=== PATIENT | female | born 1985 | race Caucasian/White ===

== ENCOUNTER 2016-07-12 11:40 | Observation (INO) | payer OTHER ==
[~2016-07-12] VITALS: Ht 175.3 cm; Wt 80.3 kg
[2016-07-12 12:30] LABS: ADD MIUA? NO; BILIRUBIN NEGATIVE; BLOOD NEGATIVE; COLOR YELLOW ((YELLOW)); GLUCOSE (STRIP) NEGATIVE; KETONES NEGATIVE; LEUKOCYTES NEGATIVE; NITRITE NEGATIVE; PROTEIN (STRIP) NEGATIVE; SPECIFIC GRAVITY 1.012 (1.000-1.030); UCUL ADDED? NO; UROBILINOGEN 0.2 MG/DL (0.2-1.0)
[2016-07-12 13:13] LABS: HEMATOCRIT 38.9 % (36.0-46.0); MCH 30.5 PG (29.0-34.0); MCHC 34.4 G/DL (30.0-36.0); MCV 88.4 FL (83-99); MEAN PLAT.VOLUME 9.2 uM^3 (9.5-12.4); PLATELET COUNT 252 K/uL (156-360); RBC DIS.WIDTH-CV 12.1 % (11.8-14.6); RBC DIS.WIDTH-SD 38.1 % (39-53); WHITE BLOOD COUNT 6.6 K/uL (4.1-10.2)
[2016-07-12 13:31] LABS: CHLORIDE 103 mEq/L (99-109); POTASSIUM 3.7 mEq/L (3.7-5.4); SODIUM 137 mEq/L (136-147)
[2016-07-12 13:33] LABS: GLUCOSE 84 mg/dL (70-99)
[2016-07-12 13:34] LABS: ANION GAP 10 MEQ/L (2-14)
[2016-07-12 13:35] LABS: TOTAL BILIRUBIN 0.5 mg/dL (0.0-1.0); TROP-I INTERPRETATION NEGATIVE; TROPONIN-I < 0.01 ng/mL (0.0-0.30)
[2016-07-12 13:36] LABS: ALKALINE PHOSPHATASE 67 IU/L (3-129)
[2016-07-12 13:37] LABS: GFR ESTIMATE (CALCULATED) > 59 mL/min/
[2016-07-12 13:38] LABS: DIRECT BILIRUBIN 0.2 mg/dL (0.0-0.3); UREA NITROGEN (BUN) 8 mg/dL (9-23)
[2016-07-12 13:40] LABS: LIPASE 34 U/L (1.0-51.0)
[2016-07-12 13:41] LABS: INTERNAL CONTROL VALID? YES; MONOSPOT (MONONUCLEOSIS SEROL) NEGATIVE
[2016-07-12 13:48] LABS: QUANTITATIVE HCG < 4.0 MIU/ML
[2016-07-12 17:01] LABS: ERTH.SED.RATE 22 MM/HR (0-20)
[2016-07-12 19:27] VITALS: BP 102/71
[2016-07-12 21:15] LABS: TROP-I INTERPRETATION NEGATIVE; TROPONIN-I < 0.01 ng/mL (0.0-0.30)
[2016-07-12 23:55] VITALS: BP 92/55
[2016-07-13 03:55] VITALS: BP 90/51
[2016-07-13 07:33] VITALS: BP 100/58
[2016-07-13 11:17] LABS: HEMATOCRIT 38.1 % (36.0-46.0); MCH 30.6 PG (29.0-34.0); MCHC 34.4 G/DL (30.0-36.0); MEAN PLAT.VOLUME 9.2 uM^3 (9.5-12.4); PLATELET COUNT 233 K/uL (156-360); RBC DIS.WIDTH-CV 12.4 % (11.8-14.6); RBC DIS.WIDTH-SD 39.5 % (39-53); RED BLOOD COUNT 4.28 M/uL (3.80-5.20); WHITE BLOOD COUNT 7.7 K/uL (4.1-10.2)
[2016-07-13 11:32] LABS: ANION GAP 8 MEQ/L (2-14); CHLORIDE 103 MEQ/L (99-109); POTASSIUM 3.6 MEQ/L (3.7-5.4); SAMPLE HEMOLYSIS CHECK 0; SAMPLE ICTERIC CHECK 0; SAMPLE LIPEMIA CHECK 0; SODIUM 136 MEQ/L (136-147)
[2016-07-13 11:38] LABS: GFR ESTIMATE (CALCULATED) > 59 mL/min/; GLUCOSE 125 mg/dL (70-99); UREA NITROGEN (BUN) 11 mg/dL (9-23)
[2016-07-13 12:14] VITALS: BP 118/70
[2016-07-13 16:00] VITALS: BP 90/56
[2016-07-13 20:00] VITALS: BP 117/62
[2016-07-14 00:44] VITALS: BP 95/55
[2016-07-14 04:31] VITALS: BP 93/57
[2016-07-14 08:18] VITALS: BP 90/54
[2016-07-14] MEDS ORDERED: VALACYCLOVIR500 MG PO (10:14)
[2016-07-14] MEDS ORDERED: ZITHROMAX500 MG PO (10:14)
== END 2016-07-14 13:46 | disposition home or self-care (01) ==
LOC: RME 11:40 → EME 11:40 → EDOF 16:13 → 5WEST 16:13
PROVIDERS: Internal Medicine; Nurse Practitioner Family
DX: R20.2 Paresthesia of skin (principal); H53.131 Sudden visual loss, right eye; R00.0 Tachycardia, unspecified; R59.1 Generalized enlarged lymph nodes; R07.9 Chest pain, unspecified; Z91.040 Latex allergy status; Z82.3 Family history of stroke; Z82.49 Family history of ischemic heart disease and other diseases of the circulatory system
CPT/HCPCS: 70450; 70544; 70549; 70551; 71020; 71275; 80048; 80076; 81003; 83690; 84443; 84484; 84702; 85027; 85651; 86308; 86611 90; 86778 90; 87040; 93005; 93306; 99281; 99285; G0378; J0456; J1200; J1650; J1885; J2060; J2765; J7030; J7512

== ENCOUNTER → 2016-09-01 | Outpatient (CLI) | payer OTHER ==
[~2016-09-01] VITALS: Ht 175.3 cm; Wt 77.2 kg
[~2016-09-01] MED LIST: ENTOCORT EC3 MG PO; LIALDA1.2 GM PO; VALACYCLOVIR500 MG PO; ZITHROMAX500 MG PO
== END | disposition home or self-care (01) ==
LOC: AMB 07:04
DX: R93.3 Abnormal findings on diagnostic imaging of other parts of digestive tract (principal); R10.9 Unspecified abdominal pain; D12.2 Benign neoplasm of ascending colon; K58.0 Irritable bowel syndrome with diarrhea
CPT/HCPCS: 88305; J2250; J3010

== ENCOUNTER 2018-01-03 14:15 | Emergency (ER) | payer OTHER ==
[~2018-01-03] VITALS: Ht 175.3 cm; Wt 69.9 kg
[2018-01-03 15:55] LABS: HEMATOCRIT 47.6 % (36.0-46.0); HEMOGLOBIN 16.4 G/DL (11.9-15.5); MCH 31.7 PG (29.0-34.0); MCHC 34.5 G/DL (30.0-36.0); MCV 92.1 FL (83-99); PLATELET COUNT 216 K/uL (156-360); RBC DIS.WIDTH-CV 12.2 % (11.8-14.6); RBC DIS.WIDTH-SD 41.3 % (39-53); RED BLOOD COUNT 5.17 M/uL (3.80-5.20); WHITE BLOOD COUNT 9.7 K/uL (4.1-10.2)
[2018-01-03 15:57] LABS: ALBUMIN 4.4 g/dL (3.2-4.8); CHLORIDE 105 mEq/L (99-109); POTASSIUM 3.6 mEq/L (3.7-5.4); SODIUM 139 mEq/L (136-147)
[2018-01-03 15:59] LABS: GLUCOSE 78 mg/dL (70-99); TOTAL PROTEIN 7.6 g/dL (6.4-8.3)
[2018-01-03 16:01] LABS: TOTAL BILIRUBIN 0.7 mg/dL (0.0-1.0)
[2018-01-03 16:03] LABS: ALKALINE PHOSPHATASE 67 IU/L (3-129); CREATININE 0.8 mg/dL (0.6-1.3); GFR ESTIMATE (CALCULATED) > 59 mL/min/
[2018-01-03 16:04] LABS: UREA NITROGEN (BUN) 11 mg/dL (9-23)
[2018-01-03 16:05] LABS: AST (GOT) 48 IU/L (2-34)
[2018-01-03 16:06] LABS: ALT (GPT) 50 IU/L (3-49)
[2018-01-03 16:12] LABS: APPEARANCE SL.HAZY ((CLEAR)); BILIRUBIN SMALL; BLOOD NEGATIVE; COLOR AMBER ((YELLOW)); GLUCOSE (STRIP) NEGATIVE; KETONES 80; LEUKOCYTES SMALL; NITRITE NEGATIVE; PROTEIN (STRIP) 30; SPECIFIC GRAVITY 1.036 (1.000-1.030)
[2018-01-03 16:12] LABS: QUANTITATIVE HCG < 4.0 MIU/ML
[2018-01-03 16:30] LABS: BACTERIA 1+ /HPF; EPITHELIAL CELLS 1+ /HPF; MUCUS 4+ /LPF; RED BLOOD CELLS NONE SEEN /HPF (0-5); UCUL ADDED? NO; WHITE BLOOD CELLS RARE /HPF (0-5)
[2018-01-03 17:18] LABS: C DIFF TOXIN NEGATIVE (NEGATIVE)
[2018-01-03] MEDS ORDERED: CIPRO500 MG PO (19:56)
[2018-01-03] MEDS ORDERED: REGLAN10 MG PO (19:58)
[2018-01-03 20:00] VITALS: BP 106/73
[2018-01-04] MEDS ORDERED: FLAGYL500 MG PO (16:02)
== END 2018-01-03 20:10 | disposition home or self-care (01) ==
LOC: EME 14:15
PROVIDERS: Nurse Practitioner Family
DX: K52.9 Noninfective gastroenteritis and colitis, unspecified (principal); E86.0 Dehydration; Z87.19 Personal history of other diseases of the digestive system; Z90.49 Acquired absence of other specified parts of digestive tract; Z91.040 Latex allergy status
CPT/HCPCS: 74177; 80053; 81003; 83630; 84702; 85027; 87493; 87506; 99281; 99285; J0780; J2765; J3010; J7120